=== PATIENT | male | born 1960 | race Caucasian/White ===

== ENCOUNTER 2016-05-08 10:44 | Outpatient (CLI) | payer OTHER, MEDICAID ==
[2015-09-10 23:37] VITALS: BP 98/58
== END 2016-05-08 10:45 ==
LOC: INF 10:44
PROVIDERS: ATTEND Internal Medicine Cardiovascular Disease
DX: I50.40 Unspecified combined systolic (congestive) and diastolic (congestive) heart failure (principal)
CPT/HCPCS: 99211

== ENCOUNTER 2016-05-23 11:54 | Outpatient (CLI) | payer OTHER, MEDICAID ==
[2015-09-10 23:37] VITALS: BP 98/58
[2016-05-23 12:26] LABS: BASOPHILS % 0.3 (0.0-1.5); EOSINOPHILS % 1.6 % (0.0-6.8); LYMPHOCYTES # 0.8 # k/uL (0.6-4.0); MEAN CORPUSCULAR HEMOGLOBIN 26.1 pg (28.0-34.0); MONOCYTES # 0.4 # k/uL (0.0-0.9); MONOCYTES % 6.1 % (0.0-11.0); NEUTROPHILS # 5.1 # k/uL (1.4-7.7)
[2016-05-23 12:46] LABS: eGFR (African) > 60; eGFR (Non-African) > 60
== END 2016-05-23 11:55 ==
LOC: LAB 11:54
PROVIDERS: ATTEND Internal Medicine Cardiovascular Disease
DX: I50.9 Heart failure, unspecified (principal)
CPT/HCPCS: 36415; 80048; 83735; 85025; 85610